=== PATIENT | female | born 2000 | race Caucasian/White ===

== ENCOUNTER 2025-02-23 18:00 | Inpatient (IN) | payer OTHER ==
[2025-02-23] MEDS ORDERED: Lidocaine 1% (PF) 30 ML VIAL SC PRN (21:11)
[2025-02-23] MEDS ORDERED: Tranexamic Acid 1,000 MG/10 ML VIAL IVP PRN (21:11)
[2025-02-23] MEDS ORDERED: Ondansetron PF 4 MG/2 ML Vial IVP PRN (21:11)
[2025-02-23] MEDS ORDERED: Diphenoxylate HCl/Atropine Tablet PO PRN (21:11)
[2025-02-23] MEDS ORDERED: hydrALAZINE 20 MG/ML VIAL SLOW IVP PRN ×2 (21:11→21:51)
[2025-02-23] MEDS ORDERED: Acetaminophen 500 MG TAB PO PRN (21:11)
[2025-02-23] MEDS ORDERED: Ibuprofen 800 MG TAB PO PRN (21:11)
[2025-02-23] MEDS ORDERED: Oxytocin 30 units/NS 500 ML 500 ML IV SCH (21:15)
[2025-02-23 21:43] LABS: Hematocrit 32.8 % (34.9-44.5); Hemoglobin 10.5 g/dL (12.0-15.5); Mean Corpuscular Hemoglobin 23.6 pg (27.0-33.0); Mean Corpuscular Volume 73.9 fL (81.6-98.3); Platelet Count 267 10x3/uL (150-450); Red Blood Cell (RBC) Count 4.44 10x6/uL (3.90-5.03); White Blood Cell (WBC) Count 9.41 10x3/uL (3.5-10.5)
[2025-02-23] MEDS ORDERED: Calcium Gluc 4.6 MEQ/10 ML (100 MG/ML) SLOW IVP PRN (21:51)
[2025-02-23] MEDS: Magnesium Sulfate 20 gm/500 ml 20 GM/500 ML BAG IVPB SCH (21:58)
[2025-02-23 22:05] LABS: ALT (SGPT) 16 U/L (Less than 34); AST (SGOT) 18 U/L (11-34); Albumin 2.8 g/dL (3.1-4.5); Alkaline Phosphatase 221 U/L (40-110); Anion Gap 11 mmol/L (10-20); BUN (Urea Nitrogen) 8 mg/dL (7.0-18.7); Bilirubin, Total 0.4 mg/dL (0.3-1.2); Calc. Creatinine Clearance 0 mL/min (70-130); Calcium 9.1 mg/dL (7.8-10.44); Carbon Dioxide 22 mmol/L (22-29); Chloride 108 mmol/L (98-107); Globulin 3.7 g/dL (2.4-3.5); Glucose 106 mg/dL (70-105); Potassium 4.1 mmol/L (3.5-5.1); Sodium 137 mmol/L (136-145)
[2025-02-23 22:45] LABS: Protein, Urine Random Quant 16.0 mg/dL (1-14)
[2025-02-24 00:07] LABS: HIV (1/2) Antibody/Antigen Non-Reactive (NonReactive); HIV 1/2 INDEX 0.13 S/CO (<1.00); Hep B Surf Ag - L&D Non-Reactive S/CO (NonReactive)
[2025-02-24 00:08] LABS: Syphilis Antibody Index 0.09 S/CO (<1.00 Non-Reactive)
[2025-02-24 01:21] VITALS: BMI 43.8
[2025-02-24] MEDS: Penicillin G Potassium 5 MILL.UNITS in Sodium Chloride 0.9% 100 ML IVPB SCH (01:24)
[2025-02-24] MEDS: Magnesium Sulfate 20 gm/500 ml 20 GM/500 ML BAG ONE (01:37)
[2025-02-24] MEDS: Penicillin G 2.5 MILL.units 2.5 MILL.UNITS in Premix 1 BAG IVPB SCH (05:11)
[2025-02-24] MEDS: fentaNYL/Ropivacaine Epidural 100 ML ONE (12:08)
[2025-02-24] MEDS ORDERED: Acetaminophen 325 MG TAB PO PRN (12:43)
[2025-02-24] MEDS ORDERED: Ondansetron PF 4 MG/2 ML Vial IVP PRN (12:43)
[2025-02-24] MEDS ORDERED: diphenhydrAMINE 50 MG/ML VIAL IVP PRN (12:43)
[2025-02-24] MEDS ORDERED: Communication Order-Pharmacy FS SCH (12:45)
[2025-02-24] MEDS: Oxytocin 30 units/NS 500 ML 500 ML IV SCH (13:25)
[2025-02-24] MEDS: fentaNYL 2 mcg/Ropivacaine 0.2% Epidural 100 ML CADD EPIDURAL SCH (23:16)
[2025-02-25] MEDS ORDERED: Meperidine HCl/PF 25 MG (1 mL) VIAL SLOW IVP PRN (01:26)
[2025-02-25] MEDS ORDERED: Ondansetron PF 4 MG/2 ML Vial IVP PRN ×3 (01:26→17:35)
[2025-02-25] MEDS ORDERED: diphenhydrAMINE 50 MG/ML VIAL IVP PRN (01:26)
[2025-02-25] MEDS ORDERED: Bicitra 30 ML UDCUP PO PRN (01:27)
[2025-02-25] MEDS ORDERED: Famotidine/PF 20 mg/2ml Vial SLOW IVP PRN (01:27)
[2025-02-25] MEDS ORDERED: Communication Order-Pharmacy FS SCH (01:30)
[2025-02-25] MEDS: Carboprost 250 MCG/ML AMP IM PRN (02:00)
[2025-02-25] MEDS: Diphenoxylate HCl/Atropine Tablet PO PRN (03:09)
[2025-02-25] MEDS: Ketorolac Tromethamine 30 MG (1 mL) VIAL IVP PRN (03:53)
[2025-02-25 05:33] LABS: #Basophils Less than 0.03 10x3/uL (0.0-0.2); #Eosinophils Less than 0.03 10x3/uL (0.0-0.5); #Monocytes 0.76 10x3/uL (0.0-1.1); #Neutrophils 12.86 10x3/uL (1.5-8.4); %Basophils 0.1 % (0.0-2.0); %Eosinophils 0.1 % (0.0-6.0); %Lymphocytes 5.2 % (18.0-47.0); %Monocytes 5.2 % (0.0-10.0); %Neutrophils 88.6 % (40.0-75.0); Hematocrit 28.9 % (34.9-44.5); Hemoglobin 9.3 g/dL (12.0-15.5); Mean Corpuscular Hemoglobin 23.7 pg (27.0-33.0); Mean Corpuscular Volume 73.7 fL (81.6-98.3); Platelet Count 255 10x3/uL (150-450); Red Blood Cell (RBC) Count 3.92 10x6/uL (3.90-5.03); White Blood Cell (WBC) Count 14.52 10x3/uL (3.5-10.5)
[2025-02-25 05:49] LABS: ALT (SGPT) 13 U/L (Less than 34); AST (SGOT) 16 U/L (11-34); Albumin 2.3 g/dL (3.1-4.5); Alkaline Phosphatase 190 U/L (40-110); Anion Gap 12 mmol/L (10-20); BUN (Urea Nitrogen) 6 mg/dL (7.0-18.7); Bilirubin, Total 1.1 mg/dL (0.3-1.2); Calc. Creatinine Clearance 332 mL/min (70-130); Calcium 7.7 mg/dL (7.8-10.44); Carbon Dioxide 19 mmol/L (22-29); Chloride 106 mmol/L (98-107); Globulin 3.4 g/dL (2.4-3.5); Glucose 105 mg/dL (70-105); Potassium 3.8 mmol/L (3.5-5.1); Sodium 133 mmol/L (136-145)
[2025-02-25] MEDS ORDERED: CEFAZOLIN 3 GM, Admixture Fee 1 EACH in Sodium Chloride 0.9% 100 ML IVPB SCH (09:00)
[2025-02-25] MEDS: Ferrous Sulfate 325 MG TAB PO SCH (10:11)
[2025-02-25] MEDS ORDERED: Enoxaparin 40 MG (0.4 mL) SYRINGE SC SCH ×2 (10:45→21:00)
[2025-02-25] MEDS ORDERED: HYDROcodone/Acetaminophen 5/325 mg Tablet PO PRN ×2 (13:31)
[2025-02-25 14:37] LABS: Chlamydia by PCR, Vaginal Swab *Indeterminate (NotDetected); GC by PCR, Vaginal Swab *Indeterminate (NotDetected)
[2025-02-25] MEDS ORDERED: Lanolin Ointment 7 GM TUBE TOP PRN (17:35)
[2025-02-25] MEDS ORDERED: Simethicone Chewable 80 MG TAB PO PRN (17:35)
[2025-02-25] MEDS ORDERED: hydrALAZINE 20 MG/ML VIAL SLOW IVP PRN (17:35)
[2025-02-25] MEDS ORDERED: Oxytocin 30 units/NS 500 ML 500 ML IV SCH (17:35)
[2025-02-25] MEDS ORDERED: Bisacodyl 10 MG SUPP PR PRN (17:35)
[2025-02-25] MEDS ORDERED: diphenhydrAMINE 25 MG CAP PO PRN (17:35)
[2025-02-25] MEDS: Azithromycin 500 MG VIAL ONE (17:38)
[2025-02-25] MEDS: CEFAZOLIN 2 GM VIAL ONE ×2 (17:38→17:39)
[2025-02-25] MEDS: Oxytocin 10 UNITS/ML VIAL ONE ×2 (17:38→17:40)
[2025-02-25] MEDS: PHENYLEPHRINE-NS 100 MCG/ML 10 ML SYRINGE ONE (17:38)
[2025-02-25] MEDS: CEFAZOLIN 1 GM VIAL ONE ×2 (17:38→17:39)
[2025-02-25] MEDS: Ondansetron PF 4 MG/2 ML Vial ONE (17:38)
[2025-02-25] MEDS: Lidocaine 2% MPF 10 ML AMP (For Epidural Use) ONE (17:39)
[2025-02-25] MEDS ORDERED: Ibuprofen 800 MG TAB PO SCH (18:00)
[2025-02-25] MEDS: HYDROcodone/Acetaminophen 5/325 mg Tablet PO PRN (18:26)
[2025-02-25] MEDS: Enoxaparin 40 MG (0.4 mL) SYRINGE SC SCH (18:31)
[2025-02-26 04:14] LABS: Hematocrit 28.0 % (34.9-44.5); Hemoglobin 8.8 g/dL (12.0-15.5); Mean Corpuscular Hemoglobin 23.7 pg (27.0-33.0); Mean Corpuscular Volume 75.5 fL (81.6-98.3); Platelet Count 244 10x3/uL (150-450); Red Blood Cell (RBC) Count 3.71 10x6/uL (3.90-5.03); White Blood Cell (WBC) Count 11.52 10x3/uL (3.5-10.5)
[2025-02-26] MEDS: Ibuprofen 800 MG TAB PO SCH (05:41)
[2025-02-26] MEDS ORDERED: Enoxaparin 40 MG (0.4 mL) SYRINGE SC SCH (09:00)
[2025-02-26] MEDS: Boostrix 0.5 ML (Tdap) VIAL (>/=7 yrs of age) IM ONE (10:46)
[2025-02-26] MEDS: Penicillin G 2.5 MILL.units 2.5 MILL.UNITS in Premix 1 BAG IVPB SCH (10:47)
[2025-02-26] MEDS: HYDROcodone/Acetaminophen 5/325 mg Tablet PO PRN (12:52)
[2025-02-28 00:17] LABS: Chlamydia by PCR, Vaginal Swab Not Detected (NotDetected)
[2025-02-28 11:45] VITALS: BP 118/59; TEMP 98.3
== END 2025-02-28 12:45 | disposition home or self-care (01) | DRG 788 ==
LOC: CSHLD 19:47 → CSHPP 02-25 17:15
PROVIDERS: ADMIT Obstetrics & Gynecology; ATTEND Obstetrics & Gynecology
PROC: 0U7C7ZZ Dilation of Cervix, Via Natural or Artificial Opening (ICD-10-PCS; principal; 2025-02-24)
PROC: 10D00Z1 Extraction of Products of Conception, Low, Open Approach (ICD-10-PCS; 2025-02-25)
PROC: 3E03329 Introduction of Other Anti-infective into Peripheral Vein, Percutaneous Approach (ICD-10-PCS; 2025-02-25)
DX: O13.4 Gestational [pregnancy-induced] hypertension without significant proteinuria, complicating childbirth (principal); O99.214 Obesity complicating childbirth; E66.813 Obesity, class 3; O99.824 Streptococcus B carrier state complicating childbirth; O76 Abnormality in fetal heart rate and rhythm complicating labor and delivery; O99.02 Anemia complicating childbirth; O14.13 Severe pre-eclampsia, third trimester; Z37.0 Single live birth; Z3A.37 37 weeks gestation of pregnancy
CPT/HCPCS: 36415; 51702; 59200; 80053; 82570; 84156; 85025; 85027; 86780; 86850; 86900; 86901; 87340; 87389; 87491; 87591; J1885; J2250; J2274; J2405; J2540; J2590; J3010; J3475; J3490; J7120